=== PATIENT | male | born 1980 | race African-American/Black ===

== ENCOUNTER 2019-05-12 11:25 | Emergency (ER) | payer MEDICARE, OTHER ==
[2019-05-12 11:32] VITALS: BP 107/69; PULSE 63; TEMP 97.7; BMI 20.7
--- NOTE | 2019-05-12 12:57 | PDOC ---
History of Present Illness - General Chief Complaint: Pain Stated Complaint: PAIN Time Seen by Provider: 05/12/19 11:47 - History of Present Illness Initial Comments: 05/12/19 12:55 38-year-old male without comorbidities presents for evaluation of left-sided rib pain since this morning. Patient states the pain is worse with movement when he raises his left arm above his head. No radiation of symptoms he points to the left lateral chest in the areas of ribs 11 and 12 Past History - Past Medical History Allergies/Adverse Reactions: Allergies Allergy/AdvReac Type Severity Reaction Status Date / Time No Known Allergies Allergy Verified 05/12/19 11:32 COPD: No - Psycho Social/Smoking Cessation Hx Smoking History: Current every day smoker Information on smoking cessation initiated: No Hx Alcohol Use: No Drug/Substance Use Hx: No Review of Systems - Review of Systems Musculoskeletal: Yes: See HPI *Physical Exam - Vital Signs Last Vital Signs Temp Pulse Resp BP Pulse Ox 97.7 F 63 19 107/69 100 05/12/19 11:30 05/12/19 11:30 05/12/19 11:30 05/12/19 11:30 05/12/19 11:30 - Physical Exam 05/12/19 12:56 GENERAL: The patient is awake, alert, and fully oriented, in no acute distress. HEAD: Normal with no signs of trauma. EYES: sclera anicteric, conjunctiva clear. ENT: Ears normal tympanic membranes normal oropharynx clear uvula midline NECK: Normal range of motion LUNGS: Breath sounds equal, clear to auscultation bilaterally. No wheezes, and no crackles. HEART: S1 and S2 without murmur, rub or gallop. ABDOMEN: Soft, nontender, normoactive bowel sounds. No guarding, no rebound. No masses. EXTREMITIES: Normal range of motion, no edema. No clubbing or cyanosis. No cords, erythema, or tenderness. NEUROLOGICAL: Cranial nerves II through XII grossly intact. PSYCH: Normal mood, normal affect. SKIN: Warm, Dry, normal turgor, no rashes or lesions noted. ED Treatment Course - RADIOLOGY Radiology Studies Ordered: Category Date Time Status CHEST - PA [RAD] Stat Radiology 05/12/19 11:51 Completed RIBS-LEFT SIDE [RAD] Stat Radiology 05/12/19 11:52 Taken Medical Decision Making - Medical Decision Making 05/12/19 12:56 There is no chest tenderness. Pain is only reproduced in the areas of ribs 10 and 11 and 12 when the arm is raised above the head and abduction maneuver. Chest x-ray shows no pneumo or rib fractures rib series was done. Patient is feeling better discharged with primary care follow-up and use of anti- inflammatories and Tylenol for discomfort Discharge - Discharge Information Problems reviewed: Yes Clinical Impression/Diagnosis: Intercostal muscle strain Condition: Stable Disposition: HOME - Admission No - Follow up/Referral Referrals: Mis Wilkinson MD [Staff Physician] - - Patient Discharge Instructions Additional Instructions: Return to the emergency room for worsening symptoms and without fail follow-up with your primary care physician in 1 to 2 days for further evaluation and treatment options. - Post Discharge Activity
== END 2019-05-12 14:05 | disposition home or self-care (01) ==
LOC: JERFT 11:25
DX: S29.011A Strain of muscle and tendon of front wall of thorax, initial encounter (principal); X58.XXXA Exposure to other specified factors, initial encounter; Y93.89 Activity, other specified; Y92.032 Bedroom in apartment as the place of occurrence of the external cause; Y99.8 Other external cause status; F17.210 Nicotine dependence, cigarettes, uncomplicated
CPT/HCPCS: 71045-TC-FY; 71101-TC-LT-FY; 99283-25